=== PATIENT | female | born 1960 | race Caucasian/White ===

== ENCOUNTER 2018-06-28 11:37 | Outpatient (CLI) | payer BC | END 2018-06-28 11:38 | disposition home or self-care (01) | LOC: BICMAMMO 11:37 | PROVIDERS: ATTEND Obstetrics & Gynecology | DX: Z12.31 Encounter for screening mammogram for malignant neoplasm of breast (principal); Z80.3 Family history of malignant neoplasm of breast | CPT/HCPCS: 77063; 77067 ==

== ENCOUNTER 2019-07-06 09:24 | Outpatient (CLI) | payer BC ==
--- NOTE | 2019-07-06 10:42 | MMO ---
Bilateral MAMMO Bilat Screen [facility]. CLINICAL HISTORY: Patient is 59 years old and is seen for screening. The patient has the following family history of breast cancer: paternal grandmother. The patient has no personal history of cancer. 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 VIEWS: The views performed were: bilateral craniocaudal with tomosynthesis and bilateral mediolateral oblique with tomosynthesis. FILMS COMPARED: The present examination has been compared to prior imaging studies performed at [facility] on 06/18/2015, 06/21/2016, 06/27/2017 and 06/28/2018. This study has been interpreted with the assistance of computer-aided detection. MAMMOGRAM FINDINGS: The breasts are heterogeneously dense, which could obscure a lesion on mammography. Finding 1: There is a stable asymmetry seen in the anterior outer region of the left breast. Finding 2: There are stable biopsy clips seen in both breasts. There are no suspicious masses, suspicious calcifications, or new areas of architectural distortion. IMPRESSION: THERE IS NO MAMMOGRAPHIC EVIDENCE OF MALIGNANCY. A ROUTINE FOLLOW-UP MAMMOGRAM IN 1 YEAR IS RECOMMENDED. THE RESULTS OF THIS EXAM WERE SENT TO THE PATIENT. ACR BI-RADS Category 2 - Benign finding MAMMOGRAPHY NOTE: 1. A negative mammogram report should not delay a biopsy if a dominant of clinically suspicious mass is present. 2. Approximately 10% to 15% of breast cancers are not detected by mammography. 3. Adenosis and dense breasts may obscure an underlying neoplasm. Reported by: EDSON MOREAU MD Electonically Signed: [id number]
== END 2019-07-06 09:25 | disposition home or self-care (01) ==
LOC: BICMAMMO 09:24
PROVIDERS: ATTEND Obstetrics & Gynecology
DX: Z12.31 Encounter for screening mammogram for malignant neoplasm of breast (principal); Z80.3 Family history of malignant neoplasm of breast
CPT/HCPCS: 77063; 77067

== ENCOUNTER 2020-07-08 07:45 | Outpatient (CLI) | payer BC ==
--- NOTE | 2020-07-08 08:28 | MMO ---
Bilateral MAMMO Bilat Screen [facility]. CLINICAL HISTORY: Patient is 60 years old and is seen for screening. The patient has the following family history of breast cancer: paternal grandmother. The patient has no personal history of cancer. 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 VIEWS: The views performed were: bilateral craniocaudal with tomosynthesis and bilateral mediolateral oblique with tomosynthesis. FILMS COMPARED: The present examination has been compared to prior imaging studies performed at [facility] on 06/21/2016, 06/27/2017, 06/28/2018 and 07/06/2019. This study has been interpreted with the assistance of computer-aided detection. MAMMOGRAM FINDINGS: The breasts are heterogeneously dense, which could obscure a lesion on mammography. Finding 1: There is a stable nodule seen in the left breast. Finding 2: There are biopsy clips seen in both breasts. There are no suspicious masses, suspicious calcifications, or new areas of architectural distortion. IMPRESSION: THERE IS NO MAMMOGRAPHIC EVIDENCE OF MALIGNANCY. A ROUTINE FOLLOW-UP MAMMOGRAM IN 1 YEAR IS RECOMMENDED. THE RESULTS OF THIS EXAM WERE SENT TO THE PATIENT. ACR BI-RADS Category 2 - Benign finding MAMMOGRAPHY NOTE: 1. A negative mammogram report should not delay a biopsy if a dominant of clinically suspicious mass is present. 2. Approximately 10% to 15% of breast cancers are not detected by mammography. 3. Adenosis and dense breasts may obscure an underlying neoplasm. Reported by: ESTHER CRUZ MD Electonically Signed: [id number]
== END 2020-07-08 07:46 | disposition home or self-care (01) ==
LOC: BICMAMMO 07:45
PROVIDERS: ATTEND Family Medicine
DX: Z12.31 Encounter for screening mammogram for malignant neoplasm of breast (principal); Z80.3 Family history of malignant neoplasm of breast
CPT/HCPCS: 77063; 77067

== ENCOUNTER 2021-07-10 08:34 | Outpatient (CLI) | payer BC | END 2021-07-10 08:35 | disposition home or self-care (01) | LOC: BICMAMMO 08:34 | PROVIDERS: ATTEND Family Medicine | DX: Z12.31 Encounter for screening mammogram for malignant neoplasm of breast (principal); Z80.3 Family history of malignant neoplasm of breast | CPT/HCPCS: 77063; 77067 ==

== ENCOUNTER 2022-02-03 08:34 | Outpatient (CLI) | payer BC | END 2022-02-03 08:35 | disposition home or self-care (01) | LOC: BICMAMMO 08:34 | PROVIDERS: ATTEND Family Medicine | DX: Z13.820 Encounter for screening for osteoporosis (principal); M85.89 Other specified disorders of bone density and structure, multiple sites; Z78.0 Asymptomatic menopausal state | CPT/HCPCS: 77080 ==

== ENCOUNTER 2022-05-03 15:48 | Outpatient (CLI) | payer BC | END 2022-05-03 15:49 | disposition home or self-care (01) | LOC: BICRAD 15:48 | PROVIDERS: ATTEND Internal Medicine | DX: M25.551 Pain in right hip (principal); M25.552 Pain in left hip; M16.0 Bilateral primary osteoarthritis of hip ==

== ENCOUNTER 2022-07-29 09:59 | Outpatient (CLI) | payer BC | END 2022-07-29 10:00 | disposition home or self-care (01) | LOC: BICMAMMO 09:59 | PROVIDERS: ATTEND Physician Assistant | DX: Z12.31 Encounter for screening mammogram for malignant neoplasm of breast (principal); Z80.3 Family history of malignant neoplasm of breast; Z91.89 Other specified personal risk factors, not elsewhere classified | CPT/HCPCS: 77063; 77067 ==

== ENCOUNTER 2023-01-14 14:46 | Outpatient (CLI) | payer BC ==
[2023-01-14 16:49] LABS: #Basophils 0.1 10x3/uL (0.0-0.2); #Eosinphils 0.1 10x3/uL (0.0-0.5); #Monocytes 0.6 10x3/uL (0.0-1.1); #Neutrophils 4.8 10x3/uL (1.5-8.4); %Basophils 0.7 % (0.0-2.0); %Eosinophils 1.7 % (0.0-6.0); %Lymphocytes 24.8 % (18.0-47.0); %Monocytes 7.8 % (0.0-10.0); %Neutrophils 64.7 % (40.0-75.0); Hemoglobin 13.9 g/dL (12.0-15.5); Mean Corpuscular HGB CONC 33.1 g/dL (32.0-36.0); Mean Corpuscular Hemoglobin 31.1 pg (27.0-33.0); Mean Platelet Volume 11.4 fl (7.4-10.4); Platelet Count 317 10x3/uL (150-450); RBC Distribution Width 12.8 % (11.5-14.5); Red Blood Cell (RBC) Count 4.47 10x6/uL (3.90-5.03); White Blood Cell (WBC) Count 7.4 10x3/uL (3.5-10.5)
[2023-01-14 16:53] LABS: Prothrombin Time 10.9 sec (9.5-12.1)
[2023-01-14 16:56] LABS: Anion Gap 16 mmol/L (10-20); BUN (Urea Nitrogen) 13 mg/dL (9.8-20.1); Calc. Creatinine Clearance 0 mL/min (70-130); Calcium 10.1 mg/dL (7.8-10.44); Carbon Dioxide 24 mmol/L (22-29); Chloride 105 mmol/L (98-107); Estimated GFR 76; Glucose 92 mg/dL (70-105); Potassium 4.7 mmol/L (3.5-5.1); Sodium 140 mmol/L (136-145)
== END 2023-01-14 14:47 | disposition home or self-care (01) ==
LOC: LABBT 14:46
PROVIDERS: ATTEND Orthopaedic Surgery
DX: Z01.818 Encounter for other preprocedural examination (principal); M16.11 Unilateral primary osteoarthritis, right hip
CPT/HCPCS: 80048; 85025; 85610; 87081; 93005; 93010

== ENCOUNTER 2023-01-18 06:06 | Observation (INO) | payer BC ==
[2023-01-18] MEDS ORDERED: CEFAZOLIN 2 GM VIAL ONE (07:02)
[2023-01-18] MEDS ORDERED: Bupivacaine PF 0.5% 30 ML VIAL ONE ×2 (07:02→08:04)
[2023-01-18] MEDS ORDERED: Sodium Chloride 0.9% 100 ML ONE ×2 (07:02→07:16)
[2023-01-18] MEDS ORDERED: Vancomycin 1 GM/200 ML (FROZEN) BAG ONE (07:16)
[2023-01-18] MEDS ORDERED: Tranexamic Acid 1,000 MG/10 ML VIAL ONE (07:16)
[2023-01-18] MEDS ORDERED: fentaNYL 50 mcg/mL 1 mL Vial ONE (08:03)
[2023-01-18] MEDS ORDERED: Midazolam HCl 2 mg/2 ml Vial ONE (08:03)
[2023-01-18] MEDS ORDERED: Ropivacaine 0.5% HCl/PF (150 MG/30 ML VIAL) ONE (08:04)
[2023-01-18] MEDS ORDERED: Acetaminophen 325 MG TAB PO PRN (08:46)
[2023-01-18] MEDS ORDERED: Ondansetron PF 4 MG/2 ML Vial IVP PRN (08:46)
[2023-01-18] MEDS ORDERED: Zolpidem Tartrate 5 MG TAB PO PRN (08:46)
[2023-01-18] MEDS ORDERED: diphenhydrAMINE 25 MG CAP PO PRN (08:46)
[2023-01-18] MEDS ORDERED: Promethazine HCl 25 MG/ML VIAL IM PRN (08:46)
[2023-01-18] MEDS ORDERED: HYDROcodone/Acetaminophen 10/325 mg Tablet PO PRN (08:46)
[2023-01-18] MEDS ORDERED: fentaNYL 50 mcg/mL 1 mL Vial SLOW IVP PRN (08:46)
[2023-01-18] MEDS ORDERED: Fentanyl 250 MCG/5 ML VIAL ONE ×2 (09:19→12:14)
[2023-01-18] MEDS ORDERED: Propofol 1,000 MG/100 ML VIAL IV ONE (09:19)
[2023-01-18] MEDS ORDERED: PHENYLEPHRINE-NS 100 MCG/ML 10 ML SYRINGE ONE (09:41)
[2023-01-18] MEDS: Atorvastatin Calcium 10 MG TAB PO SCH (14:46)
[2023-01-18] MEDS: Sodium Chloride 0.9% 1,000 ML IV SCH ×2 (14:46→20:12)
[2023-01-18] MEDS: Aspirin 81 mg Enteric Coated Tablet PO SCH ×2 (14:46→20:12)
[2023-01-18 16:16] VITALS: BMI 21.4
[2023-01-18] MEDS: CEFAZOLIN 2 GM in Sodium Chloride 0.9% 100 ML IVPB SCH (17:48)
[2023-01-18] MEDS: HYDROcodone/Acetaminophen 10/325 mg Tablet PO PRN ×2 (20:11→21:25)
[2023-01-19] MEDS: CEFAZOLIN 2 GM in Sodium Chloride 0.9% 100 ML IVPB SCH (01:54)
[2023-01-19] MEDS: HYDROcodone/Acetaminophen 10/325 mg Tablet PO PRN ×2 (03:26→08:45)
[2023-01-19 05:36] LABS: Hemoglobin 11.4 g/dL (12.0-16.0); Mean Corpuscular HGB CONC 33.6 g/dL (32.0-36.0); Mean Corpuscular Hemoglobin 31.7 pg (27.0-31.0); Mean Corpuscular Volume 94.2 fl (78.0-98.0); Mean Platelet Volume 10.9 fL (7.4-10.4); Platelet Count 219 10x3/uL (130-400); RBC Distribution Width 12.8 % (11.5-14.5); White Blood Cell (WBC) Count 10.3 10x3/uL (4.8-10.8)
[2023-01-19] MEDS: Sodium Chloride 0.9% 1,000 ML IV SCH (05:36)
[2023-01-19] MEDS ORDERED: Levothyroxine Sodium 125 MCG TAB PO SCH (06:00)
[2023-01-19] MEDS ORDERED: Ferrous Gluconate 324 MG TAB PO SCH (08:00)
[2023-01-19 08:15] VITALS: BP 115/72; TEMP 98.4
[2023-01-19] MEDS: Atorvastatin Calcium 10 MG TAB PO SCH (08:46)
[2023-01-19] MEDS: Aspirin 81 mg Enteric Coated Tablet PO SCH (08:46)
[2023-01-19] MEDS ORDERED: Senokot S 8.6-50 MG TAB PO SCH (09:00)
[2023-01-19] MEDS ORDERED: Multivitamin W/ Minerals 1 TAB PO SCH (09:00)
== END 2023-01-19 10:30 | disposition home or self-care (01) ==
LOC: SDC 06:06 → SURG A 15:22
PROVIDERS: ADMIT Orthopaedic Surgery; ATTEND Orthopaedic Surgery
PROC: 0SR90JZ Replacement of Right Hip Joint with Synthetic Substitute, Open Approach (ICD-10-PCS; principal; 2023-01-19)
DX: M16.11 Unilateral primary osteoarthritis, right hip (principal); M87.051 Idiopathic aseptic necrosis of right femur; E03.9 Hypothyroidism, unspecified; E78.00 Pure hypercholesterolemia, unspecified; G47.00 Insomnia, unspecified; F41.9 Anxiety disorder, unspecified; Z79.899 Other long term (current) drug therapy; Z79.890 Hormone replacement therapy
CPT/HCPCS: 36415; 85027; 96365; 96366; 96375; C1776; G0378; J2250; J2704; J2795; J3010; J3370-JW; J3490; S0020

== ENCOUNTER 2023-06-28 15:03 | Outpatient (CLI) | payer BC | END 2023-06-28 15:04 | disposition home or self-care (01) | LOC: BICRAD 15:03 | PROVIDERS: ATTEND Family Medicine | DX: Z47.1 Aftercare following joint replacement surgery (principal); Z96.642 Presence of left artificial hip joint ==

== ENCOUNTER 2023-08-19 08:56 | Outpatient (CLI) | payer BC | END 2023-08-19 08:57 | disposition home or self-care (01) | LOC: BICMAMMO 08:56 | PROVIDERS: ATTEND Family Medicine | DX: Z12.31 Encounter for screening mammogram for malignant neoplasm of breast (principal); Z91.89 Other specified personal risk factors, not elsewhere classified; Z80.3 Family history of malignant neoplasm of breast | CPT/HCPCS: 77063; 77067 ==

== ENCOUNTER 2024-08-24 13:48 | Outpatient (CLI) | payer BC | END 2024-08-24 13:49 | disposition home or self-care (01) | LOC: BICMAMMO 13:48 | PROVIDERS: ATTEND Family Medicine | DX: Z12.31 Encounter for screening mammogram for malignant neoplasm of breast (principal); Z80.3 Family history of malignant neoplasm of breast; Z91.89 Other specified personal risk factors, not elsewhere classified | CPT/HCPCS: 77063; 77067 ==